=== PATIENT | male | born 1960 | race Two or more races ===

== ENCOUNTER 2024-12-31 19:18 | Emergency (ER) | payer OTHER, MEDICAID ==
[~2024-12-31] VITALS: Ht 175.3 cm; Wt 63.5 kg
[2024-12-31] MEDS ORDERED: CEPH-570 PO (20:46)
[2024-12-31] MEDS ORDERED: SULF1TAB48 PO (21:46)
[2024-12-31 22:11] VITALS: BP 110/73; TEMP 98.2; O2SAT 97
== END 2024-12-31 22:11 | disposition home or self-care (01) ==
LOC: ER 19:29
DX: S81.831A Puncture wound without foreign body, right lower leg, initial encounter (principal); M70.41 Prepatellar bursitis, right knee; K40.90 Unilateral inguinal hernia, without obstruction or gangrene, not specified as recurrent; Z79.01 Long term (current) use of anticoagulants; W18.39XA Other fall on same level, initial encounter; Y93.K1 Activity, walking an animal; Y92.89 Other specified places as the place of occurrence of the external cause; Y99.8 Other external cause status
CPT/HCPCS: 73564-TC; 93971-TC

== ENCOUNTER 2025-01-04 12:36 | Emergency (ER) | payer MEDICAID, OTHER ==
[~2025-01-04] VITALS: Ht 182.9 cm; Wt 69.4 kg
[~2025-01-04 12:36] MED LIST: SULF1TAB48 PO
[2025-01-04 12:54] VITALS: TEMP 98.2
[2025-01-04 13:00] VITALS: BP 119/44; O2SAT 95
[2025-01-04] MEDS: PIPERACILLIN /TAZOBACTAM 3.375 G in IV D5W 50 ML IV ONE (13:18)
[2025-01-04 13:19] LABS: PLATELET COUNT (AUTO) 182 K/uL (150-450); RED BLOOD CELL COUNT(AUTO) 3.36 MIL/uL (4.5-6.0); RED CELL DISTRIBUTION WIDTH 13.3 % (11.5-15.0); WHITE BLOOD COUNT (AUTO) 7.2 K/uL (4.3-11.0)
[2025-01-04] MEDS: VANCOMYCIN 1 GM in IV D5W 250 ML IV ONE (13:34)
[2025-01-04 13:39] LABS: INR 1.12 (0.91-1.10)
[2025-01-04 13:41] LABS: ASPARTATE AMINOTRANSFERASE 37 U/L (15-37); CALCIUM, SERUM 8.8 mg/dL (8.5-10.1); CREATININE 1.9 mg/dL (0.6-1.3); SODIUM SERUM 138 mmol/L (136-145); TOTAL PROTEIN, SERUM 7.8 g/dL (6.4-8.2); UREA NITROGEN, BLOOD 35 mg/dL (7-18)
[2025-01-04 13:46] LABS: LACTIC ACID 2.1 mmol/L (0.4-2.0)
[2025-01-04] MEDS ORDERED: ACETAMINOPHEN ES 500 MG TABLET PO PRN (21:00)
[2025-01-04] MEDS ORDERED: HYDROCODONE/APAP 5/325MG TABLET PO PRN (21:00)
[2025-01-04] MEDS ORDERED: IV 1/2NS 1000 ML 1,000 ML IV PRN (21:00)
[2025-01-04] MEDS ORDERED: ONDANSETRON HCL/PF 4 MG/2 ML VIAL IV PRN (21:00)
[2025-01-04] MEDS ORDERED: DOSING PER PHARMACY-VANCOMYCIN IV XX PRN (21:00)
[2025-01-04] MEDS ORDERED: CEFEPIME 1 GM in IV D5W 50 ML IV SCH (21:00)
[2025-01-04] MEDS ORDERED: ZOLPIDEM TARTRATE 5 MG TABLET PO PRN (21:00)
== END 2025-01-04 21:57 | disposition short-term general hospital (02) ==
LOC: ER 12:38 → MED 18:52 → UNDOADMIN 18:52 → MED 21:52 → OBSER 21:52 → UNDODISIN 21:55 → ER 21:57
DX: L02.415 Cutaneous abscess of right lower limb (principal); Z20.822 Contact with and (suspected) exposure to COVID-19; Z60.2 Problems related to living alone
CPT/HCPCS: 99285; 96365; 71045; 96367; 87426; 93005; 84145; 85025; 80048; 87040 ×2; 83605 ×2; 80076; 85730; J3370; J2543; J7060; 36415; G0378; J0692